=== PATIENT | male | born 1990 | race Caucasian/White ===

== ENCOUNTER 2023-01-31 14:23 | Emergency (ER) | payer OTHER ==
[~2023-01-31] VITALS: Ht 167.6 cm; Wt 76.7 kg
[2023-01-31 14:23] VITALS: BP 137/97
--- NOTE | 2023-01-31 14:27 | NUR ---
PATIENT BIBA TO BED 6.
--- NOTE | 2023-01-31 14:37 | NUR ---
Patient arrived to ED 6 for c/o seizure. Patient's mother at bedside. She reported patient first had seizure on Friday, and went to [facility] and was discharged that same day. Patient felt withdrawn for past few days since Friday and had one episode seizure this afternoon. Patient's caregiver held patient while he was having seizure and assisted patient down to floor. Ambulance called. Patient's caregiver denies patient hit head during seizure episode today.
[2023-01-31] MEDS ORDERED: NACL 0.9% 2,000 ML IV SCH (14:55)
[2023-01-31 15:41] LABS: BASOPHILS % (AUTO) 0.2 % (0.0-2.0); EOSINOPHILS # (AUTO) 0.1 K/uL (0-0.4); EOSINOPHILS % (AUTO) 0.4 % (0.0-4.0); HEMATOCRIT 43.2 % (36-52); LYMPHOCYTES # (AUTO) 0.8 K/uL (2.0-11.5); LYMPHOCYTES % (AUTO) 5.7 % (20.5-51.1); MEAN CORPUSCULAR HEMOGLOBIN 33 pg (27-31); MEAN CORPUSCULAR HGB CONC 35 g/dL (33-37); MEAN CORPUSCULAR VOLUME 94.1 fL (80-94); MONOCYTES # (AUTO) 0.7 K/uL (0.8-1.0); MONOCYTES % (AUTO) 4.7 % (1.7-9.3); NEUTROPHILS # (AUTO) 12.5 K/uL (1.8-7.7); PLATELET COUNT (AUTO) 231 K/uL (140-450); RED BLOOD CELL COUNT(AUTO) 4.59 MIL/uL (4.20-6.10); RED CELL DISTRIBUTION WIDTH 13.7 % (11.6-13.7)
[2023-01-31] MEDS ORDERED: ACETAMINOPHEN 325 MG TAB PO ONE (15:55)
[2023-01-31 16:09] LABS: ALBUMIN 3.5 g/dL (3.4-5.0); ANION GAP 14.1 (8-16); CARBON DIOXIDE 26.8 mmol/L (21-32); CREATININE 1.1 mg/dL (0.6-1.3); POTASSIUM 3.9 mmol/L (3.5-5.1); TOTAL BILIRUBIN 0.5 mg/dL (0.0-1.0)
[2023-01-31] MEDS ORDERED: cefTRIAXone 1,000 MG VIAL ONE (16:31)
[2023-01-31] MEDS ORDERED: LORazepam 2 MG/ML VIAL IVP ONE (16:55)
--- NOTE | 2023-01-31 17:00 | NUR ---
IN AND OUT CATH DONE WITH STERILE TECHNIQUE. PT. TOLERATED WITHOUT DIFFICULTY. NO DISTRSS. URINE COLLECTED IN STERILE FASHION AND SENT TO LAB FOR PROCESSING
[2023-01-31 17:09] LABS: APPEARANCE,URINE CLEAR (CLEAR); BILIRUBIN,URINE NEGATIVE (NEGATIVE); BLOOD, URINE NEGATIVE (NEGATIVE); COLOR,URINE YELLOW (YELLOW); LEUKOCYTE ESTERASE ,URINE NEGATIVE (NEGATIVE); NITRITE, URINE NEGATIVE (NEGATIVE); UGLUCOSE NEGATIVE (NEGATIVE)
[2023-01-31] MEDS ORDERED: FLO.1 PO (17:34)
--- NOTE | 2023-01-31 17:34 | NUR ---
MED REC COMPLETE
--- NOTE | 2023-01-31 17:53 | NUR ---
CT repeated. aware of result.
[2023-01-31] MEDS ORDERED: AZITHROMYCIN 500 MG in DEXTROSE 5% 250 ML IV ONE (18:20)
[2023-01-31] MEDS ORDERED: levETIRAcetam 1,000 MG in NACL 0.9% 100 ML IV ONE (18:30)
[2023-01-31] MEDS ORDERED: AZITHROMYCIN 500 MG INJ VIAL IV ONE (18:40)
--- NOTE | 2023-01-31 19:32 | NUR ---
Report given to marine safety officer RN for continuity of care. Patient in stable condition.
--- NOTE | 2023-01-31 20:11 | NUR ---
REPORT FR FREEDMAN RN, PT ALERT BACK TO HIS BASELINE PER MOM , NO SZ ACTIVITY, PTS MOTHER UPDATED WITH PLAN OF ARE
--- NOTE | 2023-01-31 23:00 | NUR ---
[facility] AT BEDSIDE FOR TRANSPORT
--- NOTE | 2023-01-31 23:12 | NUR ---
[facility] [place] FROM [place]ACILITY [place] [facility] [place]
--- NOTE | 2023-01-31 23:43 | NUR ---
NO SZ ACTIVITY , FAMILY SIGNED ACKNOWLEDGE OF PTS TRANSFER TO HIGHER LEVEL OF CARE
[2023-01-31 23:45] VITALS: BP 102/62
== END 2023-01-31 23:12 | disposition short-term general hospital (02) ==
LOC: MED 14:23
DX: A41.9 Sepsis, unspecified organism (principal); Z20.822 Contact with and (suspected) exposure to COVID-19; M67.40 Ganglion, unspecified site; R56.9 Unspecified convulsions; R50.9 Fever, unspecified; Q90.9 Down syndrome, unspecified; R53.1 Weakness; Z79.899 Other long term (current) drug therapy
CPT/HCPCS: 36415; 70450; 70460; 71045; 80053; 81003; 82550; 83605; 83880; 84484; 85025; 87040; 87086; 87426; 87804; 93005; 96365; 96367; 96375; 99291; J0456; J0696; J1953; J2060; Q0092; Q9967; J7030

== ENCOUNTER 2023-10-23 03:13 | Inpatient (IN) | payer OTHER ==
[~2023-10-23] VITALS: Ht 162.6 cm; Wt 72.6 kg
[~2023-10-23 03:13] MED LIST: FLO.1 PO
[2023-10-23 03:30] VITALS: BP 118/87; PULSE 122; RESP 22; TEMP 98.8; O2SAT 99
[2023-10-23 05:00] LABS: FLU A ANTIGEN negative (NEGATIVE); FLU B ANTIGEN NEGATIVE (NEGATIVE)
[2023-10-23 05:26] LABS: BASOPHILS % (AUTO) 0.3 % (0.0-2.0); EOSINOPHILS # (AUTO) 0.3 K/uL (0-0.4); HEMATOCRIT 41.2 % (36-52); HEMOGLOBIN 14.4 g/dL (12.0-18.0); LYMPHOCYTES # (AUTO) 0.7 K/uL (2.0-11.5); MEAN CORPUSCULAR HEMOGLOBIN 33 pg (27-31); MEAN CORPUSCULAR HGB CONC 35 g/dL (33-37); MEAN CORPUSCULAR VOLUME 94.5 fL (80-94); MONOCYTES # (AUTO) 0.5 K/uL (0.8-1.0); MONOCYTES % (AUTO) 3.6 % (1.7-9.3); NEUTROPHILS # (AUTO) 12.4 K/uL (1.8-7.7); NEUTROPHILS % (AUTO) 89.1 % (42.2-75.2); PLATELET COUNT (AUTO) 221 K/uL (140-450); RED BLOOD CELL COUNT(AUTO) 4.36 MIL/uL (4.20-6.10); RED CELL DISTRIBUTION WIDTH 13.9 % (11.6-13.7); WHITE BLOOD COUNT (AUTO) 13.9 K/uL (4.8-10.8)
[2023-10-23 05:38] LABS: APPEARANCE,URINE CLEAR (CLEAR); BILIRUBIN,URINE NEGATIVE (NEGATIVE); BLOOD, URINE NEGATIVE (NEGATIVE); COLOR,URINE YELLOW (YELLOW); LEUKOCYTE ESTERASE ,URINE NEGATIVE (NEGATIVE); NITRITE, URINE NEGATIVE (NEGATIVE); PROTEIN,URINE NEGATIVE (NEGATIVE); UGLUCOSE NEGATIVE (NEGATIVE); UROBILINOGEN,URINE 0.2 EU/dL (0.2 - 1)
[2023-10-23 05:40] LABS: CALCIUM 8.5 mg/dL (8.5-10.1); CARBON DIOXIDE 26.2 mmol/L (21-32); CREATININE 0.9 mg/dL (0.6-1.3); POTASSIUM 3.2 mmol/L (3.5-5.1)
[2023-10-23] MEDS: NACL 0.9% 1,000 ML IV ONE (05:41)
[2023-10-23] MEDS: KETOROLAC 30 MG/ML VIAL IVP ONE (05:42)
[2023-10-23 05:47] LABS: ALBUMIN 3.1 g/dL (3.4-5.0); BILIRUBIN,DIRECT 0.1 mg/dL (0.0-0.3); TOTAL BILIRUBIN 0.7 mg/dL (0.0-1.0)
[2023-10-23 05:52] LABS: LACTIC ACID 1.3 mmol/L (0.4-2.0)
[2023-10-23] MEDS ORDERED: cefTRIAXone 1,000 MG VIAL ONE (06:14)
[2023-10-23] MEDS ORDERED: KEP500 PO (06:35)
[2023-10-23] MEDS ORDERED: AZITHROMYCIN 500 MG INJ VIAL IV ONE (07:37)
[2023-10-23] MEDS: AZITHROMYCIN 500 MG in DEXTROSE 5% 250 ML IV ONE (07:50)
[2023-10-23] MEDS ORDERED: ALBUTEROL 0.083% 2.5 MG/3 ML NEBU INH PRN (08:00)
[2023-10-23] MEDS ORDERED: MORPHINE SULFATE 2 MG/ML SYR IVP PRN (08:05)
[2023-10-23] MEDS: NACL 0.9% 1,000 ML IV SCH (10:06)
[2023-10-23] MEDS: ACETAMINOPHEN 325 MG TAB PO PRN (13:21)
[2023-10-23 19:01] VITALS: PULSE 101; RESP 18; O2SAT 97
[2023-10-23 21:30] VITALS: PULSE 98; RESP 18; O2SAT 96
[2023-10-24] VITALS: BP 121/74; PULSE 94; PULSE 96; RESP 18; TEMP 98.4; O2SAT 94
[2023-10-24 04:00] VITALS: BP 134/91; PULSE 88; PULSE 91; RESP 18; TEMP 98.4; O2SAT 96
[2023-10-24] MEDS: cefTRIAXone 1,000 MG VIAL ONE (04:50)
[2023-10-24] MEDS: AZITHROMYCIN 500 MG INJ VIAL IV ONE (06:17)
[2023-10-24] MEDS: AZITHROMYCIN 500 MG in DEXTROSE 5% 250 ML IV SCH (06:29)
[2023-10-24 06:58] LABS: BASOPHILS % (AUTO) 0.3 % (0.0-2.0); EOSINOPHILS # (AUTO) 0.2 K/uL (0-0.4); EOSINOPHILS % (AUTO) 2.1 % (0.0-4.0); HEMATOCRIT 38.2 % (36-52); HEMOGLOBIN 13.5 g/dL (12.0-18.0); LYMPHOCYTES # (AUTO) 1.4 K/uL (2.0-11.5); MEAN CORPUSCULAR HEMOGLOBIN 34 pg (27-31); MEAN CORPUSCULAR HGB CONC 35 g/dL (33-37); MEAN CORPUSCULAR VOLUME 95.2 fL (80-94); MONOCYTES # (AUTO) 0.7 K/uL (0.8-1.0); MONOCYTES % (AUTO) 6.8 % (1.7-9.3); NEUTROPHILS # (AUTO) 8.5 K/uL (1.8-7.7); NEUTROPHILS % (AUTO) 77.8 % (42.2-75.2); PLATELET COUNT (AUTO) 217 K/uL (140-450); RED BLOOD CELL COUNT(AUTO) 4.01 MIL/uL (4.20-6.10); RED CELL DISTRIBUTION WIDTH 13.7 % (11.6-13.7); WHITE BLOOD COUNT (AUTO) 10.9 K/uL (4.8-10.8)
[2023-10-24 07:10] VITALS: O2SAT 95
[2023-10-24 07:43] LABS: ALBUMIN 2.5 g/dL (3.4-5.0); ANION GAP 12.9 (8-16); CALCIUM 7.9 mg/dL (8.5-10.1); CARBON DIOXIDE 26.6 mmol/L (21-32); MAGNESIUM 1.9 mg/dL (1.8-2.4); POTASSIUM 3.5 mmol/L (3.5-5.1); TOTAL BILIRUBIN 0.4 mg/dL (0.0-1.0); TOTAL PROTEIN, SERUM 7.1 g/dL (6.4-8.2)
[2023-10-24 08:00] VITALS: PULSE 78; RESP 18
[2023-10-24 08:04] VITALS: PULSE 100
[2023-10-24] MEDS ORDERED: CEPH-588 PO (16:10)
[2023-10-24] MEDS ORDERED: AZIT500T1 PO (16:10)
[2023-10-24 16:16] VITALS: BP 112/62; PULSE 78; RESP 18; TEMP 98.6
== END 2023-10-24 17:51 | disposition home or self-care (01) | DRG 139 ==
LOC: MED 03:13 → MTU 08:01
PROVIDERS: ADMIT Hospitalist; ATTEND Hospitalist
DX: J18.9 Pneumonia, unspecified organism (principal); J96.01 Acute respiratory failure with hypoxia; E44.0 Moderate protein-calorie malnutrition; R65.10 Systemic inflammatory response syndrome (SIRS) of non-infectious origin without acute organ dysfunction; Q90.9 Down syndrome, unspecified; G40.909 Epilepsy, unspecified, not intractable, without status epilepticus; Z20.822 Contact with and (suspected) exposure to COVID-19; R55 Syncope and collapse; Z86.73 Personal history of transient ischemic attack (TIA), and cerebral infarction without residual deficits; Z68.27 Body mass index [BMI] 27.0-27.9, adult
CPT/HCPCS: 36415; 71045; 80048; 80053; 80076; 81003; 83605; 83735; 85025; 87040; 87081; 87086; 96365; 96367; 96375; 99285; J0456; J0696; J1885; J7060; Q0092